=== PATIENT | female | born 1990 | race Caucasian/White ===

== ENCOUNTER 2021-07-09 06:14 | Inpatient (IN) ==
[2021-07-09] MEDS ORDERED: Lactated Ringers 1000 ml BAG 1,000 ML IV ONE ×2 (07:09→07:35)
[2021-07-09] MEDS ORDERED: Buffered Lidocaine 1% SYRIN 1 ml INTRADERM ONE (07:09)
[2021-07-09 07:26] LABS: ABS Eosinophils 0.1 10^3/ul (0-0.6); ABS Lymphocytes 1.2 10^3/ul (1.0-4.8); ABS Monocytes 0.6 10^3/ul (0-0.8); ABS Neutrophils 6.4 10^3/ul (1.5-7.7); Eosinophil % 0.8 %; Hematocrit 34 % (35-47); Hemoglobin 11.9 g/dL (12.0-16.0); Lymphocyte % 14.2 %; Mean Corpuscular HGB Conc 35 g/dL (31-36); Mean Corpuscular Hemoglobin 29 pg (27-31); Mean Corpuscular Volume 83 fL (80-97); Mean Platelet Volume 8.2 fL (7.4-10.4); Platelet Count 192 10^3/uL (150-450); Red Blood Count 4.06 10^6 /uL (3.70-4.87); Red Cell Distribution Width 14 % (10-15); White Blood Count 8.3 10^3/uL (3.5-10.8)
[2021-07-09] MEDS ORDERED: Phenylephrine 40 mcg/mL 10mL (400mcg) SYRINGE IV PUSH PRN ×2 (07:35)
[2021-07-09] MEDS ORDERED: Sodium Citrate/Citric Acid LIQ 15 ML UDC PO PRN (07:35)
[2021-07-09] MEDS ORDERED: OBEPIDURAL 250 ML EPIDURAL ONE (07:36)
[2021-07-09] MEDS ORDERED: OBEPIDURAL 250 ML EPIDURAL SCH (08:00)
[2021-07-09] MEDS ORDERED: Lactated Ringers 1000 ml BAG 1,000 ML IV SCH ×3 (08:00→13:00)
[2021-07-09 08:12] LABS: Urine Benzodiazepine Screen None Detected (None Detect); Urine Cannabinoids Screen None Detected (None Detect); Urine Opiates Screen None Detected (None Detect)
[2021-07-09 08:35] LABS: Urine Appearance Clear; Urine Bilirubin Negative (Negative); Urine Blood Negative (Negative); Urine Color Straw; Urine Glucose Negative (Negative); Urine Ketones 1+ (Negative); Urine Nitrite Negative (Negative); Urine Protein Negative (Negative); Urine Specific Gravity 1.005 (1.002-1.030); Urine Urobilinogen Negative (Negative)
[2021-07-09] MEDS ORDERED: Oxytocin in LR 20 UNITS/1,000 ML BAG IVPB ONE (11:13)
[2021-07-09] MEDS ORDERED: Dibucaine 1% OINT 28.35 GM TUBE PR PRN (12:50)
[2021-07-09] MEDS ORDERED: Glycerin ADULT 2.4 gm SUPP PR PRN (12:50)
[2021-07-09] MEDS ORDERED: Witch Hazel PAD JAR TOPICAL PRN (12:50)
[2021-07-09] MEDS ORDERED: Oxytocin in LR 20 UNITS/1,000 ML BAG IVPB SCH (13:00)
[2021-07-10 06:45] LABS: ABS Eosinophils 0.2 10^3/ul (0-0.6); ABS Lymphocytes 1.5 10^3/ul (1.0-4.8); ABS Monocytes 0.8 10^3/ul (0-0.8); ABS Neutrophils 8.9 10^3/ul (1.5-7.7); Eosinophil % 1.3 %; Hematocrit 31 % (35-47); Hemoglobin 10.9 g/dL (12.0-16.0); Lymphocyte % 13.4 %; Mean Corpuscular HGB Conc 35 g/dL (31-36); Mean Corpuscular Hemoglobin 30 pg (27-31); Mean Corpuscular Volume 85 fL (80-97); Mean Platelet Volume 8.5 fL (7.4-10.4); Platelet Count 182 10^3/uL (150-450); Red Blood Count 3.68 10^6 /uL (3.70-4.87); Red Cell Distribution Width 14 % (10-15); White Blood Count 11.4 10^3/uL (3.5-10.8)
[2021-07-10 12:05] VITALS: BP 113/62
== END 2021-07-10 13:50 | disposition home or self-care (01) | DRG 560 ==
LOC: MCHOBOUT 06:14 → MCHOB 07:03
PROVIDERS: ADMIT Midwife; ATTEND Midwife